=== PATIENT | female | born 1930 | race Caucasian/White ===

== ENCOUNTER 2017-06-24 10:39 | Emergency (ER) | payer MEDICARE, BC ==
[~2017-06-24] VITALS: Ht 165.1 cm; Wt 64.0 kg
[~2017-06-24 10:39] MED LIST: ALLOPURINOL 10100 M1 PO; ASPIR 8181 MG PO; B-121000 MC2 PO; CALCIUM 500 +1 EAC5 PO; CARAFATE 1 GM TA1 G1 PO; DIOVAN 80 MG TA80 M1 PO; FISH OIL 1,001000 M2 PO; HYDROCHLOROTH12.5 M1 PO; IRON325 PO; K-TAB10 MEQ PO; PROTONIX40 M1 PO; SIMVASTATIN40 MG PO; SYNTHROID75 MCG PO; XARELTO15 MG PO; XARELTO20 MG PO; ZIAC 10-6.25 M1 EACH PO
[2017-06-24] MEDS ORDERED: PREDNISONE 5 MG5 MG PO (11:01)
[2017-06-24] MEDS ORDERED: VALACYCLOVIR1000 MG PO (11:01)
[2017-06-24] MEDS ORDERED: HYDROCODON-ACE1 EAC7 PO (11:01)
[2017-06-24 11:09] VITALS: BP 148/92
== END 2017-06-24 11:15 | disposition home or self-care (01) ==
LOC: M.ERS 10:39
DX: B02.9 Zoster without complications (principal); E78.00 Pure hypercholesterolemia, unspecified; Z95.0 Presence of cardiac pacemaker; E89.0 Postprocedural hypothyroidism

== ENCOUNTER 2017-12-28 12:21 | Emergency (ER) | payer MEDICARE, BC ==
[~2017-12-28] VITALS: Ht 165.1 cm; Wt 64.9 kg
[~2017-12-28 12:21] MED LIST changes: +HYDROCODON-ACE1 EAC7 PO; +PREDNISONE 5 MG5 MG PO; +VALACYCLOVIR1000 MG PO
[2017-12-28] MEDS ORDERED: FISH OIL 1,001000 M2 PO (12:43)
[2017-12-28] MEDS ORDERED: ELIQUIS5 MG PO (12:43)
[2017-12-28] MEDS ORDERED: COZAAR 25 MG TA25 M1 PO (12:43)
[2017-12-28] MEDS ORDERED: OSTERA TABLET1 EAC1 PO (12:45)
[2017-12-28] MEDS ORDERED: CALCIUM 500 +1 EAC1 PO (12:45)
[2017-12-28 13:17] LABS: ABSOLUTE BASOPHILS 0.1 thou/uL (0.0-0.2); ABSOLUTE EOSINOPHILS 0.1 thou/uL (0.0-0.7); ABSOLUTE LYMPHOCYTES 1.1 thou/uL (0.8-5.3); ABSOLUTE MONOCYTES 0.5 thou/uL (0.0-1.2); ABSOLUTE NEUTROPHILS 6.4 thou/uL (1.6-8.1); BASOPHILS 0.7 %; EOSINOPHILS 1.4 %; HEMATOCRIT 39.6 % (37.0-47.0); HEMOGLOBIN 12.9 gm/dL (12.0-15.0); LYMPHOCYTES 13.8 %; MCH 27.5 pg (26.0-34.0); MCHC 32.5 g/dL (28.0-37.0); MCV 84.4 fL (80.0-100.0); MPV 8.7 fl. (7.2-11.1); NUCLEATED RBCS 0 /100WBC; PLATELET COUNT* 300 thou/uL (150-400); POLYS 78.1 %; RBC 4.69 mil/uL (4.20-5.00); RDW-CV 15.3 % (10.5-14.5); WBC 8.2 thou/uL (4.0-11.0)
[2017-12-28 13:24] LABS: CALCIUM 8.3 mg/dL (8.5-10.1); CREATININE 1.2 mg/dL (0.6-1.3); POTASSIUM 3.7 mmol/L (3.5-5.1)
[2017-12-28 14:10] VITALS: BP 180/83
== END 2017-12-28 14:11 | disposition home or self-care (01) ==
LOC: M.ERS 12:21
PROVIDERS: Nurse Practitioner Family
DX: K64.4 Residual hemorrhoidal skin tags (principal); E89.0 Postprocedural hypothyroidism; E78.00 Pure hypercholesterolemia, unspecified

== ENCOUNTER → 2018-01-26 | Outpatient (CLI) | payer MEDICARE, BC ==
[~2018-01-26] MED LIST changes: +CALCIUM 500 +1 EAC1 PO; +COZAAR 25 MG TA25 M1 PO; +ELIQUIS5 MG PO; +OSTERA TABLET1 EAC1 PO
== END ==
LOC: M.CT 15:56
DX: M25.411 Effusion, right shoulder (principal); M19.011 Primary osteoarthritis, right shoulder; M25.511 Pain in right shoulder; G89.29 Other chronic pain; L92.9 Granulomatous disorder of the skin and subcutaneous tissue, unspecified; Z96.611 Presence of right artificial shoulder joint